=== PATIENT | male | born 1970 | race Caucasian/White ===

== ENCOUNTER 2018-02-13 07:28 | Inpatient (IN) | payer MEDICAID, OTHER ==
[~2018-02-13] VITALS: Ht 177.8 cm; Wt 80.0 kg
[2018-02-13] VITALS (7 sets, daily range): BP systolic 124–155; BP diastolic 71–88; PULSE 76–96; RESP 17–20; TEMP 96.8–98.3; O2SAT 96–99
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
[2018-02-13] MEDS ORDERED: D5-1/2 NS + KCL 20 MEQ INJ 1,000 ML IV SCH (08:45)
[2018-02-13] MEDS ORDERED: ONDANSETRON HCL 4 MG/2 ML VIAL IV PUSH ONE (10:00)
[2018-02-13] MEDS ORDERED: HYDROmorphone HCL PF 1 MG/ML VIAL IV PUSH ONE (10:00)
[2018-02-13] MEDS ORDERED: MORPHINE SULFATE 8 MG/ML INJ IV PUSH ONE (10:00)
[2018-02-13] MEDS: LACTATED RINGER'S 1000 ML INJ 1,000 ML IV SCH (17:44)
[2018-02-13] MEDS ORDERED: ONDANSETRON HCL 4 MG/2 ML VIAL IV PUSH PRN (17:45)
[2018-02-13] MEDS ORDERED: ACETAMINOPHEN 325 MG TAB PO PRN (17:45)
[2018-02-13] MEDS ORDERED: ENALAPRILAT 1.25 MG/ML VIAL IV PUSH PRN (17:45)
[2018-02-13] MEDS ORDERED: SODIUM CHLORIDE 0.9% FLUSH 10 ML FLUSH IV FLUSH PRN (17:45)
[2018-02-13] MEDS: PANTOPRAZOLE SODIUM 40 MG VIAL IVP SCH (18:00)
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
[2018-02-13] MEDS: DOCUSATE SODIUM 100 MG CAP PO SCH (20:44)
[2018-02-13] MEDS: MAGNESIUM HYDROXIDE SUSP 30 ML CUP PO SCH (20:44)
[2018-02-13] MEDS: MORPHINE SULFATE 4 MG/ML INJ IV PUSH PRN (20:45)
[2018-02-13] MEDS ORDERED: POVIDONE IODINE 5% (ANTISEPSIS KIT) 4 APPLICATIONS EACH NARE PRN (22:30)
[2018-02-13] MEDS ORDERED: CHLORHEXIDINE GLUCONATE 2 % 1 PACK (2 CLOTHS) TOPICAL PRN (22:30)
[2018-02-13] MEDS ORDERED: LACTATED RINGER'S 1000 ML IV PRN (22:30)
[2018-02-13] MEDS ORDERED: SODIUM CHLORID 0.9% 500 ML IV PRN (22:30)
[2018-02-13] MEDS ORDERED: METOPROLOL TARTRATE 25 MG TAB PO PRN (22:30)
[2018-02-14] VITALS (9 sets, daily range): BP systolic 106–137; BP diastolic 70–90; PULSE 73–109; RESP 17–18; TEMP 96.6–97.4; O2SAT 95–97
[2018-02-14] MEDS: MORPHINE SULFATE 4 MG/ML INJ IV PUSH PRN ×3 (01:17→13:32)
[2018-02-14 08:04] LABS: AUTOMATED NEUTROPHIL # 7.3 TH/MM3 (1.8-7.7); BASOPHIL # 0.1 TH/MM3 (0-0.2); BASOPHIL % 0.6 % (0.0-2.0); EOSINOPHIL # 0.4 TH/MM3 (0-0.4); EOSINOPHIL % 4.1 % (0.0-4.0); HEMATOCRIT 42.7 % (39.0-51.0); HEMOGLOBIN 14.4 GM/DL (13.0-17.0); LYMPH % 12.5 % (9.0-44.0); LYMPHOCYTE # 1.2 TH/MM3 (1.0-4.8); MEAN CELL VOLUME 89.1 FL (80.0-100.0); MEAN CORPUSCULAR HEMOGLOBIN 30.1 PG (27.0-34.0); MEAN CORPUSCULAR HGB CONC 33.8 % (32.0-36.0); MONO % 6.3 % (0.0-8.0); MONOCYTE # 0.6 TH/MM3 (0-0.9); NEUT % 76.5 % (16.0-70.0); PLATELET COUNT 112 TH/MM3 (150-450); RED BLOOD COUNT 4.79 MIL/MM3 (4.50-5.90); RED CELL DISTRIBUTION WIDTH 13.3 % (11.6-17.2); WHITE BLOOD COUNT 9.6 TH/MM3 (4.0-11.0)
[2018-02-14 08:24] LABS: ALBUMIN 3.4 GM/DL (3.4-5.0); AST (GOT) 23 U/L (15-37); BICARBONATE 27.9 MEQ/L (21.0-32.0); BLOOD UREA NITROGEN 11 MG/DL (7-18); CALCIUM 8.4 MG/DL (8.5-10.1); CHLORIDE 107 MEQ/L (98-107); CREATININE 0.96 MG/DL (0.60-1.30); GLOMERULAR FILTRATION RATE 84 ML/MIN (>89); GLUCOSE,RANDOM 82 MG/DL (74-106); SODIUM (NA) 141 MEQ/L (136-145)
[2018-02-14 08:28] LABS: ALKALINE PHOSPHATASE 94 U/L (45-117); ALT (GPT) 31 U/L (12-78); TOTAL PROTEIN 7.1 GM/DL (6.4-8.2)
[2018-02-14] MEDS: DOCUSATE SODIUM 100 MG CAP PO SCH ×2 (09:00→20:25)
[2018-02-14] MEDS: MAGNESIUM HYDROXIDE SUSP 30 ML CUP PO SCH ×2 (09:00→20:26)
[2018-02-14] MEDS: LACTATED RINGER'S 1000 ML INJ 1,000 ML IV SCH (09:15)
[2018-02-14] MEDS ORDERED: PROPOFOL 200 MG/20 ML AMP IV ONE (12:00)
[2018-02-14] MEDS ORDERED: LIDOCAINE HCL 1% PF 5 ML SYRINGE OTHER ONE (12:00)
[2018-02-14] MEDS ORDERED: DEXAMETHASONE SOD PHOS 4 MG/ML VIAL IV ONE (12:00)
[2018-02-14] MEDS ORDERED: ESMOLOL HCL 100 MG/10 ML VIAL IV ONE (12:00)
[2018-02-14] MEDS ORDERED: ROCURONIUM INJ 50 MG/5 ML SYRINGE IV PUSH ONE (12:00)
[2018-02-14] MEDS ORDERED: ONDANSETRON HCL 4 MG/2 ML VIAL IV PUSH ONE (12:00)
[2018-02-14] MEDS ORDERED: GLYCOPYRROLATE 1 MG/5 ML SYRINGE IV PUSH ONE (12:00)
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
[2018-02-14] MEDS ORDERED: LIDOCAINE 1%/EPINEPHrine 1:100,000 SOLN 30 ML VIAL ONE (17:05)
[2018-02-14] MEDS ORDERED: ceFAZolin INJ 1,000 MG VIAL ONE (17:05)
[2018-02-14] MEDS ORDERED: OXYMETAZOLINE HCL 0.05% 15 ML NASAL SPRAY ONE (17:10)
[2018-02-14] MEDS: PANTOPRAZOLE SODIUM 40 MG VIAL IVP SCH (18:00)
[2018-02-14] MEDS ORDERED: DO NOT ADM ANY ANTICOAGULANT DRUGS PRN (18:27)
[2018-02-14] MEDS ORDERED: *morphine SULFATE 8 MG/ML PERIprocedure ONLY ONE ×2 (18:41→18:59)
[2018-02-14] MEDS ORDERED: MORPHINE SULFATE 4 MG/ML INJ ONE (18:41)
[2018-02-14] MEDS ORDERED: oxyCODONE/ACETAMINOPHEN 7.5 MG/325 MG TAB PO PRN (19:45)
[2018-02-14] MEDS ORDERED: DEXT 5%-NACL 0.45% 1000 ML INJ 1,000 ML IV SCH (20:00)
[2018-02-14] MEDS: MORPHINE SULFATE 2 MG/ML INJ IV PRN (20:28)
[2018-02-14] MEDS ORDERED: SUGAMMADEX SODIUM 200 MG/2 ML VIAL IV PUSH ONE (21:55)
[2018-02-15] MEDS: MORPHINE SULFATE 2 MG/ML INJ IV PRN ×3 (00:19→06:06)
[2018-02-15 00:45] VITALS: BP 151/76; PULSE 98; RESP 17; TEMP 98.1; O2SAT 95
[2018-02-15] MEDS: ceFAZolin 1,000 MG/NS 100 ML IV SCH ×4 (02:21→09:28)
[2018-02-15 03:10] VITALS: BP 126/77; PULSE 69; RESP 16; TEMP 97.2; O2SAT 96
[2018-02-15 03:49] VITALS: PULSE 83
[2018-02-15 04:13] LABS: HEMATOCRIT 42.2 % (39.0-51.0); HEMOGLOBIN 14.3 GM/DL (13.0-17.0)
[2018-02-15] MEDS ORDERED: ACETAMINOPHEN 325MG/HYDROcodone 7.5MG/15ML UDC PO PRN ×2 (06:15→14:00)
[2018-02-15 07:38] VITALS: BP 109/74; PULSE 77; RESP 18; TEMP 97.6; O2SAT 98
[2018-02-15 09:00] VITALS: PULSE 77
[2018-02-15] MEDS: DOCUSATE SODIUM 100 MG CAP PO SCH (09:00)
[2018-02-15] MEDS ORDERED: fentaNYL 50 MCG/HR PATCH T-DERMAL SCH (09:00)
[2018-02-15] MEDS ORDERED: CHLORHEXIDINE GLUCONATE 0.12% 15 ML CUP SWISH-SPIT SCH (09:00)
[2018-02-15] MEDS: MAGNESIUM HYDROXIDE SUSP 30 ML CUP PO SCH (09:27)
[2018-02-15] MEDS ORDERED: HYDR1SOL6 PO (11:13)
[2018-02-15] MEDS ORDERED: Chlorhexidine 0.12% Liq SWISH-SPIT (11:13)
[2018-02-15 11:17] VITALS: BP 107/72; PULSE 98; RESP 18; TEMP 99.7; O2SAT 97
[2018-02-15] MEDS ORDERED: HYDR1SOL3 PO ×2 (11:55→11:58)
[2018-02-15] MEDS ORDERED: MILKSUS PO (13:15)
[2018-02-15] MEDS ORDERED: IBUP100S11 PO (13:15)
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
== END 2018-02-15 14:10 | disposition home or self-care (01) | DRG 132 ==
LOC: NEPE 07:28 → NEDA 08:34 → N06A 14:36
PROVIDERS: ADMIT Surgery; ATTEND Surgery
PROC: 0NST04Z Reposition Right Mandible with Internal Fixation Device, Open Approach (ICD-10-PCS; principal; 2018-02-15)
PROC: 0NSVXZZ Reposition Left Mandible, External Approach (ICD-10-PCS; 2018-02-15)
DX: S02.622A Fracture of subcondylar process of left mandible, initial encounter for closed fracture (principal); M26.4 Malocclusion, unspecified; S02.601B Fracture of unspecified part of body of right mandible, initial encounter for open fracture; Y04.2XXA Assault by strike against or bumped into by another person, initial encounter
CPT/HCPCS: 80053; 85014; 85018; 85025; 86850; 86900; 86901; 94150; 99283; C1713; J0690; J1100; J2270; J2405; J3010; J3480; J7120